=== PATIENT | female | born 1950 | race Caucasian/White ===

== ENCOUNTER 2018-07-09 11:34 | Inpatient (IN) | payer MEDICARE ==
[~2018-07-09] VITALS: Ht 165.1 cm; Wt 86.7 kg
[~2018-07-09 11:34] MED LIST: AMLODIPINE-BEN1 EAC1 PO; AMLODIPINE-BEN1 EACH PO; CELEBREX100 MG PO; COLESTIPOL HCL1 GM PO; CRESTOR10 MG PO; GABAPENTIN300 MG PO; GLIMEPIRIDE2 MG PO; PHENOBARBITAL97.2 MG PO; TEGRETOL XR200 MG PO
--- OUTSIDE RECORDS SUMMARY | 2018-07-09 11:37 | XMS REPORT ---
Author Author [facility] Address Unknown Phone Unavailable Care Team Providers Care [place] Administrator Name Role Phone Unavailable Unavailable Payers Payer Name Policy Type Policy Number Effective Date Expiration Date Problems This patient has no known problems. Allergies, Adverse Reactions, Alerts Allergy Name Allergy Type Status Severity Reaction(s) Onset Date Inactive Date Treating Clinician Comments Cephalexin Monohydrate DA Active U 2018-06-21 00:00:00 iodine DA Active U 2018-06-21 00:00:00 amoxicillin DA Active U 2018-06-21 00:00:00 Cephalexin Monohydrate DA Active U 2010-11-07 00:00:00 iodine DA Active U 2010-11-07 00:00:00 amoxicillin DA Active U 2010-11-07 00:00:00 Medications This patient has no known medications.
[2018-07-09] MEDS ORDERED: GELATIN SPONGE 12-7MM ONE (13:46)
[2018-07-09] MEDS ORDERED: BACITRACIN 50,000 UNIT VIAL ONE (13:46)
[2018-07-09] MEDS ORDERED: BUPIVACAINE 0.5%/EPI 30 ML SDV INJ ONE (13:46)
[2018-07-09] MEDS ORDERED: BACITRACIN ZINC 15 GM OINT ONE (13:46)
[2018-07-09] MEDS: LACTATED RINGER'S 1,000 ML IV SCH ×2 (14:50→23:08)
[2018-07-09] MEDS ORDERED: METFORMIN HCL500 MG PO (14:55)
[2018-07-09] MEDS ORDERED: DEXTROSE 5% 250ML 250 ML IV ONE (14:55)
[2018-07-09 15:00] LABS: BASOPHILS % 0.5 % (0.0-1.0); EOSINOPHILS # (AUTO) 0.2 (0.0-0.4); EOSINOPHILS % 2.8 % (0.0-6.0); HEMATOCRIT 34.5 % (34.2-44.1); HEMOGLOBIN 11.7 g/dL (12.0-16.0); LYMPHOCYTES # (AUTO) 1.4 (1.0-3.2); LYMPHOCYTES % 24.9 % (18.0-39.1); MEAN CORPUSCULAR HEMOGLOBIN 31.6 pg (28-32); MEAN CORPUSCULAR HGB CONC 33.9 g/dL (31-35); MEAN CORPUSCULAR VOLUME 93.2 fL (81-99); MONOCYTES # (AUTO) 0.5 (0.2-0.8); NEUTROPHILS # (AUTO) 3.6 (2.1-6.9); NEUTROPHILS % 62.6 % (38.7-80.0); PLATELET COUNT 362 x10e3/uL (140-360); RED CELL DISTRIBUTION WIDTH 12.3 % (11.7-14.4)
[2018-07-09] MEDS ORDERED: CARISOPRODOL 350 MG TAB PO PRN (15:00)
[2018-07-09] MEDS: VANCOMYCIN 1GM/NS 250 ML 250 ML IV SCH (15:00)
[2018-07-09] MEDS ORDERED: OXYCODONE/ACETAMINOPHEN 5-325 1 EACH TABLET PO PRN (15:00)
[2018-07-09] MEDS ORDERED: MORPHINE SULFATE 5 MG/ML VIAL IM PRN (15:00)
[2018-07-09] MEDS ORDERED: ACETAMINOPHEN 325 MG TAB PO PRN (15:00)
[2018-07-09] MEDS ORDERED: PROMETHAZINE HCL (IM) 25 MG/ML VIAL IM PRN (15:00)
[2018-07-09] MEDS ORDERED: ZOLPIDEM TARTRATE 5 MG TAB PO PRN (15:00)
[2018-07-09] MEDS ORDERED: MAGNESIUM/ALUMINUM/SIMETHICONE 30 ML UDC PO PRN (15:00)
[2018-07-09] MEDS ORDERED: DEXTROSE 50% SYRINGE 50 ML IV PRN (15:15)
[2018-07-09] MEDS ORDERED: MORPHINE SULFATE INJ 10 MG/ML IM PRN (15:15)
[2018-07-09 15:24] LABS: ALANINE AMINOTRANSFERASE 11 IU/L (0-55); ALBUMIN 3.7 g/dL (3.5-5.0); ALBUMIN/GLOBULIN RATIO 0.9 (0.8-2.0); ALKALINE PHOSPHATASE 122 IU/L (40-150); ANION GAP 14.3 mmol/L (8-16); BLOOD UREA NITROGEN 9 mg/dL (7-26); BUN/CREATININE RATIO 14 (6-25); CALCIUM 9.6 mg/dL (8.4-10.2); CARBON DIOXIDE 25 mmol/L (22-29); CHLORIDE 100 mmol/L (98-107); CREATININE, SERUM 0.63 mg/dL (0.57-1.11); EST GLOMERULAR FILTRATION RATE > 60 ML/MIN (60-); GLUCOSE 66 mg/dL (74-118); POTASSIUM 3.3 mmol/L (3.5-5.1); SODIUM 136 mmol/L (136-145)
[2018-07-09 16:05] LABS: ERYTHROCYTE SEDIMENTATION RATE 99 mm/hr (0-20)
[2018-07-09] MEDS ORDERED: FENTANYL CITRATE/PF 100MCG/2 ML INJ ONE ×2 (16:21→19:39)
[2018-07-09] MEDS: GLIMEPIRIDE 2 MG TAB PO SCH (17:00)
[2018-07-09] MEDS: GABAPENTIN 300 MG CAP PO SCH (17:00)
[2018-07-09] MEDS ORDERED: CARBAMAZEPINE 200 MG TAB.ER.12H PO SCH (17:00)
--- NOTE | 2018-07-09 18:33 | Diagnostic Imaging Report ---
Examination: Single AP view of the chest. COMPARISON: None. INDICATION: PICC line placement IMPRESSION: 1. Lines and Tubes: Interval placement of left-sided PICC line which has its distal tip projecting at the mid to distal SVC. 2. Lungs are well-inflated. Linear opacities in the left midlung and lower lung likely represents subsegmental atelectasis. No consolidation or effusion. 3. Cardiomediastinal silhouette is normal. Pulmonary vasculature is normal. 4. No acute bony abnormalities. Signed by: Dr. Kike Hernandez M.D. on 07/09/2018 6:30 PM
--- NOTE | 2018-07-09 19:02 | Consultation ---
DATE OF CONSULTATION: July 09, 2018 REASON FOR CONSULTATION: Dehiscence of surgical wound. HISTORY OF PRESENT ILLNESS: This patient is a very pleasant, 68-year-old female with history of diabetes mellitus, history of atherosclerosis disease who had back surgery done on August 19, 2018. She had lumbar spine surgery done a few weeks ago. She is coming with dehiscence of her wound. The patient was admitted by Dr. Briscoe for debridement and underwent debridement, old superficial primarily skin necrosis and mild superficial infection. Infection disease was consulted. Patient is seen postop. She is currently lying in bed comfortably. PAST MEDICAL HISTORY: Hypertension, diabetes mellitus, neuropathy and insomnia. PAST SURGICAL HISTORY: She had below the knee amputation on the right. She had the lumbar spine surgery and then debridement recently. ALLERGIES: SHE IS ALLERGIC TO AMOXICILLIN, CEPHALEXIN AND IODINE, BUT ACCORDING TO THE SHE TOOK AMOXICILLIN WITH NO PROBLEM AND SHE HAD RASH WITH PENICILLIN. The patient is currently postop, doing well. She has no complaints as mentioned above. PAST MEDICAL HISTORY: Diabetes mellitus. PAST SURGICAL HISTORY: As above. SOCIAL HISTORY: There is no smoking, drug abuse or alcohol abuse. FAMILY HISTORY: Diabetes mellitus. REVIEW OF SYSTEMS: HEENT: Negative. PULMONARY: Negative. CARDIAC: Negative. : Negative. SKIN: There is no rash. LABORATORY DATA: Reviewed. White count 5.6. Hemoglobin 11.7. Her sodium 136, potassium 3.3. Creatinine 0.63. PHYSICAL EXAMINATION: GENERAL: Alert, oriented, does not seem to be in any acute distress. VITAL SIGNS: Stable, currently afebrile. HEENT: Not icteric. NECK: Supple. CHEST: Clear bilaterally. HEART: S1 and S2, no murmur. ABDOMEN: Soft. Bowel sounds present. No tenderness. EXTREMITIES: No edema. IMPRESSION: Surgical wound dehiscence, necrosis in a patient who is diabetic with peripheral vascular disease, disease. RECOMMENDATIONS: I agree with vancomycin. Will add cefepime. Will follow with you. Obtain sed rate, C. reactive protein, weekly CBC, weekly Chem panel, await cultures and sensitivity. Will ask case management to arrange 2 weeks of IV antibiotics. Job#: [id number]
[2018-07-09] MEDS ORDERED: ROCURONIUM BROMIDE 10 MG/ML 5ML VIAL ONE (19:39)
[2018-07-09] MEDS ORDERED: DEXAMETHASONE SOD PHOS INJ 4 MG/ML VIAL ONE (19:39)
[2018-07-09] MEDS ORDERED: PROPOFOL IV EMULSION 10 MG/ML 20 ML VIAL ONE (19:39)
[2018-07-09] MEDS ORDERED: LIDOCAINE HCL 2% LOCAL INJ 5 ML SDV VIAL INJ ONE (19:39)
[2018-07-09] MEDS ORDERED: GLYCOPYRROLATE INJ 1MG/ 5 ML SYR ONE (19:39)
[2018-07-09] MEDS ORDERED: SEVOFLURANE INHAL SOLN 250 ML PEN BTL ONE (19:39)
[2018-07-09] MEDS ORDERED: ONDANSETRON HCL INJ 2 MG/ML VIAL ONE (19:39)
[2018-07-09] MEDS ORDERED: MIDAZOLAM HCL 2 MG/2 ML VIAL ONE (19:39)
[2018-07-09] MEDS ORDERED: SUCCINYLCHOLINE 200 MG/10 ML SYR ONE (19:39)
[2018-07-09 19:48] VITALS: BP 129/19
[2018-07-09 20:00] VITALS: BP 129/19
[2018-07-09] MEDS: HYDROMORPHONE 2MG/ML 2 MG/ML ML IV PRN (20:15)
[2018-07-09] MEDS: ONDANSETRON HCL INJ 2 MG/ML VIAL IV PRN (20:58)
[2018-07-09] MEDS: CARBAMAZEPINE 200 MG TAB.ER.12H PO SCH (20:59)
[2018-07-09] MEDS: SIMVASTATIN 20 MG TAB PO SCH (20:59)
[2018-07-09] MEDS: PHENOBARBITAL 32.4 MG TAB PO SCH (20:59)
[2018-07-09] MEDS: CEFEPIME HCL 1 GM VIAL IV SCH (20:59)
[2018-07-09] MEDS ORDERED: PHENOBARBITAL 100 MG PO SCH (21:00)
[2018-07-10] VITALS (7 sets, daily range): BP systolic 107–136; BP diastolic 62–72
[2018-07-10] MEDS: CARBAMAZEPINE 200 MG TAB.ER.12H PO SCH ×3 (00:49→20:38)
[2018-07-10] MEDS: HYDROMORPHONE 2MG/ML 2 MG/ML ML IV PRN ×2 (02:48→23:07)
[2018-07-10] MEDS: VANCOMYCIN 1GM/NS 250 ML 250 ML IV SCH ×2 (03:37→16:31)
[2018-07-10] MEDS: CEFEPIME HCL 1 GM VIAL IV SCH ×3 (05:40→21:51)
--- NOTE | 2018-07-10 06:35 | Consultation ---
DATE OF CONSULTATION: July 10, 2018 REASON FOR CONSULTATION: Postop medical management. HPI: Patient is a 68-year-old lady who had lumbar surgery few weeks ago, who presents with some dehiscence and superficial cellulitis of the surgical site where she is status post I and D and she has been admitted for further evaluation. REVIEW OF SYSTEMS: Negative for chest pain, nausea, vomiting, shortness of breath, fevers, chills, headache, or dizziness. PAST MEDICAL HISTORY: Significant for diabetes, hyperlipidemia, and hypertension. MEDICATIONS: See MAR. ALLERGIES: CEPHALEXIN AND IODINE. SOCIAL HISTORY: Nonsmoker and nondrinker. FAMILY HISTORY: Noncontributory. PHYSICAL EXAMINATION VITALS: 98.2, pulse 83, blood pressure 115/65, and sats 95%. GENERAL: No apparent distress. NECK: Supple. CARDIOVASCULAR: Regular rate and rhythm. LUNGS: Clear to auscultation bilaterally. ABDOMEN: Good bowel sounds. Soft and nontender. EXTREMITIES: No clubbing or cyanosis. NEUROLOGIC: Nonfocal. ASSESSMENT AND PLAN 1. Cellulitis of the back, continue with IV antibiotics per Dr. Moore. 2. Diabetes: Continue with current care and monitoring. 3. Hypertension: Continue with her home medications and monitor. 4. Hyperlipidemia: Continue with her simvastatin. Please see hospital chart for full details. Job#: [id number] [place]
[2018-07-10] MEDS: LACTATED RINGER'S 1,000 ML IV SCH (07:43)
[2018-07-10] MEDS: COLESTIPOL HCL 1 G TAB PO SCH (08:04)
[2018-07-10] MEDS: CELECOXIB 200 MG CAP PO SCH ×2 (08:04→09:00)
[2018-07-10] MEDS: GLIMEPIRIDE 2 MG TAB PO SCH ×2 (08:04→16:31)
[2018-07-10] MEDS: BENAZEPRIL HCL 10 MG TAB PO SCH (08:04)
[2018-07-10] MEDS: GABAPENTIN 300 MG CAP PO SCH ×2 (08:05→16:31)
[2018-07-10] MEDS: AMLODIPINE BESYLATE 5 MG TAB PO SCH (08:05)
[2018-07-10] MEDS ORDERED: [UNRECOGNIZED DRUG - OTHER] PO SCH (09:00)
[2018-07-10] MEDS ORDERED: BENAZEPRIL PO SCH (09:00)
[2018-07-10] MEDS ORDERED: AMLODIPINE BESYLATE PO SCH (09:00)
[2018-07-10] MEDS ORDERED: CELECOXIB 100 MG CAP PO SCH (09:00)
[2018-07-10] MEDS ORDERED: SIMVASTATIN 40 MG TAB PO SCH (09:00)
[2018-07-10] MEDS ORDERED: MORPHINE SULFATE 5 MG/ML VIAL IV PRN (09:45)
[2018-07-10] MEDS: SIMVASTATIN 20 MG TAB PO SCH (20:38)
[2018-07-10] MEDS: PHENOBARBITAL 32.4 MG TAB PO SCH (20:38)
[2018-07-11] VITALS (7 sets, daily range): BP systolic 104–125; BP diastolic 57–73
[2018-07-11] MEDS: VANCOMYCIN 1GM/NS 250 ML 250 ML IV SCH ×2 (02:43→15:17)
[2018-07-11] MEDS: CEFEPIME HCL 1 GM VIAL IV SCH ×3 (05:25→21:26)
[2018-07-11 05:44] LABS: BASOPHILS % 0.9 % (0.0-1.0); EOSINOPHILS # (AUTO) 0.2 (0.0-0.4); EOSINOPHILS % 5.1 % (0.0-6.0); HEMATOCRIT 29.1 % (34.2-44.1); HEMOGLOBIN 9.5 g/dL (12.0-16.0); LYMPHOCYTES # (AUTO) 1.6 (1.0-3.2); LYMPHOCYTES % 34.4 % (18.0-39.1); MEAN CORPUSCULAR HGB CONC 32.6 g/dL (31-35); MEAN CORPUSCULAR VOLUME 95.1 fL (81-99); MONOCYTES # (AUTO) 0.4 (0.2-0.8); MONOCYTES % 8.4 % (4.4-11.3); NEUTROPHILS # (AUTO) 2.3 (2.1-6.9); PLATELET COUNT 236 x10e3/uL (140-360); RED BLOOD COUNT 3.06 x10e6/uL (3.6-5.1); RED CELL DISTRIBUTION WIDTH 12.4 % (11.7-14.4)
[2018-07-11 06:03] LABS: ANION GAP 13.4 mmol/L (8-16); BLOOD UREA NITROGEN 7 mg/dL (7-26); BUN/CREATININE RATIO 11 (6-25); CALCIUM 9.3 mg/dL (8.4-10.2); CARBON DIOXIDE 29 mmol/L (22-29); CHLORIDE 103 mmol/L (98-107); CREATININE, SERUM 0.63 mg/dL (0.57-1.11); EST GLOMERULAR FILTRATION RATE > 60 ML/MIN (60-); GLUCOSE 95 mg/dL (74-118); POTASSIUM 4.4 mmol/L (3.5-5.1); SODIUM 141 mmol/L (136-145)
[2018-07-11] MEDS: COLESTIPOL HCL 1 G TAB PO SCH (08:22)
[2018-07-11] MEDS: BENAZEPRIL HCL 10 MG TAB PO SCH (08:22)
[2018-07-11] MEDS: GLIMEPIRIDE 2 MG TAB PO SCH ×2 (08:22→17:04)
[2018-07-11] MEDS: CARBAMAZEPINE 200 MG TAB.ER.12H PO SCH ×2 (08:22→21:26)
[2018-07-11] MEDS: GABAPENTIN 300 MG CAP PO SCH ×2 (08:23→17:04)
[2018-07-11] MEDS: AMLODIPINE BESYLATE 5 MG TAB PO SCH (08:23)
[2018-07-11] MEDS: CELECOXIB 200 MG CAP PO SCH (08:27)
[2018-07-11] MEDS: HYDROMORPHONE 2MG/ML 2 MG/ML ML IV PRN (19:52)
[2018-07-11] MEDS: ONDANSETRON HCL INJ 2 MG/ML VIAL IV PRN (19:53)
[2018-07-11] MEDS: SIMVASTATIN 20 MG TAB PO SCH (21:26)
[2018-07-11] MEDS: PHENOBARBITAL 32.4 MG TAB PO SCH (21:26)
[2018-07-12] VITALS (8 sets, daily range): BP systolic 114–150; BP diastolic 62–75
[2018-07-12] MEDS: VANCOMYCIN 1GM/NS 250 ML 250 ML IV SCH ×2 (03:22→13:57)
[2018-07-12] MEDS: CEFEPIME HCL 1 GM VIAL IV SCH ×2 (05:38→13:57)
[2018-07-12] MEDS: GLIMEPIRIDE 2 MG TAB PO SCH ×2 (08:52→16:27)
[2018-07-12] MEDS: COLESTIPOL HCL 1 G TAB PO SCH (08:52)
[2018-07-12] MEDS: CARBAMAZEPINE 200 MG TAB.ER.12H PO SCH ×2 (08:52→20:45)
[2018-07-12] MEDS: CELECOXIB 200 MG CAP PO SCH (08:52)
[2018-07-12] MEDS: GABAPENTIN 300 MG CAP PO SCH ×2 (08:54→16:27)
[2018-07-12] MEDS: AMLODIPINE BESYLATE 5 MG TAB PO SCH (08:54)
[2018-07-12] MEDS: BENAZEPRIL HCL 10 MG TAB PO SCH (08:54)
--- NOTE | 2018-07-12 11:01 | Operative Report ---
DATE OF PROCEDURE: July 09, 2018 PREOPERATIVE DIAGNOSIS: Postoperative lumbar wound infection and dehiscence, T81.31XA, T81.4XXA. POSTOPERATIVE DIAGNOSIS: Postoperative lumbar wound infection and dehiscence, T81.31XA, T81.4XXA. PROCEDURES 1. Excisional debridement of dehisced, infected lumbar wound, 101.80. 2. Primary multilayered closure of the lumbar wound, 48995. ANESTHESIA: General. INDICATIONS: The patient is a 68-year-old woman who presents with an infected and dehisced lumbar wound two weeks status post lumbar laminectomy. She was taken to the operating room for debridement and primary closure of the wound. PROCEDURE: After induction of general anesthesia, the patient was placed on the operating table in prone position over a Ruben frame. Lumbar region was prepped and draped in sterile fashion. The incision was completely dehisced with 1 cm of necrosis around the skin edges. A spindle-shaped excisional plan was marked on the patient's skin with a marker. The marked area was then followed with a #10 blade, and the necrotic skin edges were resected on both sides of the incision until healthy subcutaneous fat was encountered. The subcutaneous fat was then extensively debrided with Bovie electrocautery. The lumbar fascia was exposed and was found to be intact. No pus collection was found. The superficial compartment was thoroughly irrigated with Bacitracin solution. One of the fascial stitches was then removed, and the deep compartment was inspected. No pus collection was found in the deep compartment. The deep compartment was thoroughly irrigated with Bacitracin solution with a pulse log chain worker and then closed with #0 Vicryl suture through the fascia. The superficial compartment was thoroughly irrigated with a pulse log chain worker and closed in multiple layers with #0 and 2-0 Vicryl sutures. The skin was closed with 3-0 nylon sutures in vertical mattress fashion. A dressing was applied. The patient was awakened, extubated and taken to the postanesthesia care unit in stable condition. No intraoperative complications were encountered. Estimated blood loss was minimal. Job#: [id number]
[2018-07-12] MEDS: PHENOBARBITAL 32.4 MG TAB PO SCH (20:45)
[2018-07-12] MEDS: SIMVASTATIN 20 MG TAB PO SCH (20:45)
[2018-07-12] MEDS: HYDROMORPHONE 2MG/ML 2 MG/ML ML IV PRN (20:55)
[2018-07-13] MEDS ORDERED: DIPHENHYDRAMINE HCL 25 MG CAP PO PRN (00:30)
[2018-07-13 00:39] VITALS: BP 129/62
[2018-07-13 06:32] VITALS: BP 130/62
[2018-07-13] MEDS: GLIMEPIRIDE 2 MG TAB PO SCH (08:00)
[2018-07-13 08:29] VITALS: BP 123/56
[2018-07-13] MEDS: COLESTIPOL HCL 1 G TAB PO SCH (09:00)
[2018-07-13] MEDS: CARBAMAZEPINE 200 MG TAB.ER.12H PO SCH (09:00)
[2018-07-13] MEDS ORDERED: CEFTRIAXONE SOD 2 GM VIAL IV SCH (09:00)
[2018-07-13] MEDS: CELECOXIB 200 MG CAP PO SCH (09:00)
[2018-07-13] MEDS: GABAPENTIN 300 MG CAP PO SCH (09:00)
[2018-07-13] MEDS: AMLODIPINE BESYLATE 5 MG TAB PO SCH (09:44)
[2018-07-13] MEDS: BENAZEPRIL HCL 10 MG TAB PO SCH (09:59)
[2018-07-13 12:16] VITALS: BP 132/60
[2018-07-13 15:15] VITALS: BP 127/68
== END 2018-07-13 16:13 | disposition home or self-care (01) | DRG 857 ==
LOC: OR 11:34 → PACU V 14:53 → MED/SURG2 18:12
PROVIDERS: ADMIT Neurological Surgery; ATTEND Neurological Surgery
PROC: 02HV33Z Insertion of Infusion Device into Superior Vena Cava, Percutaneous Approach (ICD-10-PCS; 2018-07-08)
PROC: 0JB70ZZ Excision of Back Subcutaneous Tissue and Fascia, Open Approach (ICD-10-PCS; principal; 2018-07-12)
PROC: 0JQ70ZZ Repair Back Subcutaneous Tissue and Fascia, Open Approach (ICD-10-PCS; 2018-07-12)
DX: T81.42XA Infection following a procedure, deep incisional surgical site, initial encounter (principal); T81.31XA Disruption of external operation (surgical) wound, not elsewhere classified, initial encounter; E11.52 Type 2 diabetes mellitus with diabetic peripheral angiopathy with gangrene; I96 Gangrene, not elsewhere classified; L03.312 Cellulitis of back [any part except buttock and flank]; E78.5 Hyperlipidemia, unspecified; E11.9 Type 2 diabetes mellitus without complications; Z79.4 Long term (current) use of insulin; B96.89 Other specified bacterial agents as the cause of diseases classified elsewhere; E66.9 Obesity, unspecified; Z68.31 Body mass index [BMI] 31.0-31.9, adult; G40.909 Epilepsy, unspecified, not intractable, without status epilepticus
CPT/HCPCS: 36415; 36569; 71045; 80048; 80053; 80202; 82948; 85025; 85651; 87040; 87071; 87075; 87186; 87205; 88304; 93005; J0692; J0696; J1100; J2001; J2250; J2270; J2405; J2550; J3370; J7070; J7120

== ENCOUNTER 2022-12-07 11:48 | Emergency (ER) | payer MEDICARE, OTHER ==
[~2022-12-07] VITALS: Ht 162.6 cm; Wt 88.5 kg
[~2022-12-07 11:48] MED LIST changes: +METFORMIN HCL500 MG PO
[2022-12-07] MEDS ORDERED: ACETAMINOPHEN 325 MG TAB PO ONE (12:15)
== END 2022-12-07 15:35 | disposition home or self-care (01) ==
LOC: ER 11:57
DX: S00.83XA Contusion of other part of head, initial encounter (principal); M54.2 Cervicalgia; W01.0XXA Fall on same level from slipping, tripping and stumbling without subsequent striking against object, initial encounter; Y93.01 Activity, walking, marching and hiking; Y92.89 Other specified places as the place of occurrence of the external cause; I10 Essential (primary) hypertension; E11.9 Type 2 diabetes mellitus without complications; E78.5 Hyperlipidemia, unspecified; G40.909 Epilepsy, unspecified, not intractable, without status epilepticus; Z89.511 Acquired absence of right leg below knee
CPT/HCPCS: 70450; 72125; 93005; 99284

== ENCOUNTER 2023-06-15 07:51 | Outpatient (RCR) | payer MEDICARE | END 2023-07-07 | LOC: PT 07:51 | PROVIDERS: ATTEND Specialist | DX: M75.122 Complete rotator cuff tear or rupture of left shoulder, not specified as traumatic (principal) ==